=== PATIENT | female | born 1970 | race African-American/Black ===

== ENCOUNTER → 2016-11-20 | Outpatient (CLI) | payer BC, OTHER ==
[~2016-11-20] MED LIST: ALBUTEROL MININEB NEB; ASPIRIN81 MG PO; CLOPIDOGREL75 MG PO; COZAAR100 MG PO; FLONASE 0.05% N16 G1; HYDROXYZINE HCL10 MG PO; IMDUR-ER30 M1 PO; KCL PO; LOPRESSOR PO; MAXALT MLT5 MG TL; PRAVACHOL20 MG PO; PROAIR HFA8.5 GM INH; PROTONIX PO; SERTRALINE HCL50 M1 PO; SYMBICORT INH; VASCEPA1 GM PO; VITAMIN D350000 UNIT PO; ZANAFLEX2 M1 PO; ZOFRAN ODT4 M1 SL; ZOLOFT50 MG PO
== END | disposition home or self-care (01) ==
LOC: CBAR 15:20
DX: Z01.812 Encounter for preprocedural laboratory examination (principal); E66.01 Morbid (severe) obesity due to excess calories
CPT/HCPCS: 36415; 84443; 86677; G0463

== ENCOUNTER → 2017-02-08 | Outpatient (CLI) | payer BC, OTHER ==
--- NOTE | ~2017-02-08 | CR63 ---
[facility] A Service of [facility] RADIOLOGY TEXT RESULTS PATIENT: MIKKI SHAY LOCATION: [facility] : 74 UNIT #: [id number] AGE: [address]: Nils Nicole MD SEX: F ORDER DR: [id number] [facility] [address] [place], [place] [address] [id number] O MR#: [id number] Acc #: [id number] NAME: MIKKI SHAY : 1970 SEX: F STUDY DATE/TIME: 02/08/2017 8:05 UNIT: [facility] ROOM: STUDY DESCRIPTION: CR Chest 2 View Attending Physician: Nils Nicole M.D. Ordering Physician: Nils Nicole M.D. Primary Care Physician: Sindy Reeves M.D. MEDICAL IMAGING REPORT This report is preliminary unless electronic signature is present EXAM Chest x-ray. HISTORY Preoperative evaluation for Lap-Band surgery. Shortness of breath with activity of chronic duration. TECHNIQUE Two views of the chest were obtained. FINDINGS PA and lateral examination of the chest upright shows a good expansion of the parenchyma with a normal distribution of the pulmonary vascularity. There is no indication of congestion, effusion, infiltrate, tumor, or nodular density. The pleural reflections and diaphragmatic contours are normal. The cardiac silhouette and mediastinal anatomy is within normal limits. IMPRESSION Normal chest. Dictated by... Kevin Huerta M.D. THIS IS AN ELECTRONICALLY VERIFIED REPORT Kevin Huerta M.D. at 02/08/2017 3:46 PM RLF/javier TD: 02/08/2017 11:37 JOB #: [id number] [facility] A Service [facility] RADIOLOGY TEXT RESULTS PATIENT: MIKKI SHAY LOCATION: [facility] : 74 UNIT #: [id number] AGE: [address]: Nils Nicole MD SEX: F ORDER DR: MEDICAL IMAGING REPORT Page 1 of 1 COPY
--- NOTE | ~2017-02-08 | EKG ---
PATIENT: MIKKI SHAY UNIT #: [id number] Ventricular Rate: 78 BPM Atrial Rate: 78 BPM P-R Interval: 124 ms QRS Duration: 86 ms Q-T Interval: 396 ms QTC Calculation(Bezet): 451 ms P Gould: 8 degrees Calculated R Gould: 6 degrees Calculated T Gould: 5 degrees Diagnosis Line: Normal sinus rhythm Diagnosis Line: Nonspecific T wave abnormality Diagnosis Line: Abnormal ECG Diagnosis Line: No previous ECGs available Diagnosis Line: Confirmed by JASBIR YBARRA MD ([id number]) on Diagnosis Line: 02/09/2017 1:38:51 PM INTERPRETING MD: MANDO
--- NOTE | ~2017-02-08 | CR97 ---
[facility] A Service of [facility] RADIOLOGY TEXT RESULTS PATIENT: MIKKI SHAY LOCATION: [facility] : 74 UNIT #: [id number] AGE: [address]: Nils Nicole MD SEX: F ORDER DR: [id number] [facility] [address] [place], [place] [address] [id number] O MR#: [id number] Acc #: [id number] NAME: MIKKI SHAY : 1970 SEX: F STUDY DATE/TIME: 02/08/2017 8:45 UNIT: [facility] ROOM: STUDY DESCRIPTION: CR Esophagram Attending Physician: Nils Nicole M.D. Ordering Physician: Nils Nicole M.D. Primary Care Physician: Sindy Reeves M.D. MEDICAL IMAGING REPORT This report is preliminary unless electronic signature is present EXAM Barium esophagram. INDICATION Morbid obesity and preop for Lap-Band surgery. TECHNIQUE The fluoroscopy time is 0.3 minutes and 16 images were taken. FINDINGS The thoracic esophagus is normal in course and caliber. There is no evidence for hiatal hernia or reflux. IMPRESSION Normal esophagram. Dictated by... Servando Gallardo M.D. THIS IS AN ELECTRONICALLY VERIFIED REPORT Servando Gallardo M.D. at 02/08/2017 4:51 PM IRINA/javier TD: 02/08/2017 16:34 JOB #: [id number] MEDICAL IMAGING REPORT Page 1 of 1 COPY
[2017-02-08 09:50] LABS: HEMATOCRIT 39.8 % (35.0-45.0); HEMOGLOBIN 12.8 gm/dL (12.0-16.0); MEAN CELL VOLUME 83.2 FL (83-96); MEAN CORPUSCULAR HEMOGLOBIN 26.7 PG (28-34); MEAN CORPUSCULAR HGB CONC 32.1 g/dL (30-36); MEAN PLATELET VOLUME 7.7 FL (6.5-11.5); RED BLOOD COUNT 4.78 X10e (3.90-5.30); RED CELL DISTRIBUTION WIDTH 15.2 % (11.0-15.5)
[2017-02-08 10:47] LABS: ALBUMIN SERUM 3.2 g/dL (3.5-5.0); BILIRUBIN,TOTAL 0.6 mg/dL (0.2-2.0); BUN/CREATININE RATIO 18.57; CALCIUM SERUM 9.1 mg/dL (8.4-10.2); CREATININE SERUM 0.7 mg/dL (0.6-1.4); GLOM FILT RATE Estimated 122.1 mL/min (>60); POTASSIUM 4.3 mmol/L (3.5-5.1)
== END | disposition home or self-care (01) ==
LOC: CRAD 01-18 08:00 → CAMB 01-18 08:30 → CRAD 07:52
PROVIDERS: Surgery
DX: Z01.818 Encounter for other preprocedural examination (principal); K44.9 Diaphragmatic hernia without obstruction or gangrene; E66.3 Overweight; E66.01 Morbid (severe) obesity due to excess calories
CPT/HCPCS: 36415; 71020; 74220; 80053; 80061; 84443; 85027; 93005